=== PATIENT | male | born 1995 | race Caucasian/White ===

== ENCOUNTER 2019-02-02 23:10 | Emergency (ER) | payer MEDICAID ==
[2019-02-02 23:15] VITALS: BMI 39.6
[2019-02-02] MEDS ORDERED: CELEXA40 MG (23:17)
[2019-02-02] MEDS ORDERED: PROBIOTIC BLEN1 EACH (23:17)
[2019-02-02] MEDS ORDERED: ZITHROMAX TRI-500 MG PO (23:29)
[2019-02-02] MEDS ORDERED: ROBITUSSIN DM 110 ML PO (23:29)
[2019-02-03 00:17] VITALS: BP 138/73
== END 2019-02-03 00:18 | disposition home or self-care (01) ==
LOC: D.ER 23:10
DX: R06.9 Unspecified abnormalities of breathing (principal)

== ENCOUNTER 2019-06-23 14:43 | Emergency (ER) | payer MEDICAID ==
[~2019-06-23] VITALS: Ht 167.6 cm; Wt 106.8 kg
[~2019-06-23 14:43] MED LIST: CELEXA40 MG; PROBIOTIC BLEN1 EACH; ROBITUSSIN DM 110 ML PO; ZITHROMAX TRI-500 MG PO
[2019-06-23 14:49] VITALS: Ht 167.6 cm; Wt 106.8 kg
[2019-06-23 15:20] LABS: BASOPHILS 0.1 % (0-2); EOSINOPHILS 0.6 % (0-7); HEMATOCRIT 43.6 % (42.0-54.0); HEMOGLOBIN 14.5 g/dL (13.5-17.5); IMMATURE GRANULOCYTES 0.3 % (0-5); MCH 28.7 pg (26.0-34.0); MCHC 33.3 g/dL (31.0-37.0); MCV 86.2 fL (80.0-100.0); MEAN PLATELET VOLUME 10.2 fL (7.4-10.4); MONOCYTES 5.5 % (2-11); NEUTROPHILS 69.5 % (40-80); PLATELET COUNT 266 10x3/uL (130-400); RBC 5.06 10x6/uL (4.20-6.10); RDW 13.4 % (11.5-14.5); WBC 11.4 10x3/uL (4.8-10.8)
[2019-06-23 15:28] LABS: APTT 31.1 SECONDS (22.8-39.4); INR 1.08 (0.85-1.17); PROTIME 13.5 SECONDS (11.6-15.0)
[2019-06-23 15:36] LABS: ALBUMIN 3.4 g/dL (3.4-5.0); ALKALINE PHOSPHATASE 85 U/L (46-116); ALT (SGPT) 21 U/L (10-68); BILIRUBIN - TOTAL 0.45 mg/dL (0.2-1.3); CALC OSMOLALITY 280 mosm/kg (275-300); CALCIUM 8.2 mg/dL (8.5-10.1); CHLORIDE - SERUM 105 mmol/L (98-107); GLUCOSE 84 mg/dL (74-106); POTASSIUM - SERUM 3.5 mmol/L (3.5-5.1); PROTEIN - SERUM 6.9 g/dL (6.4-8.2); SODIUM 142 mmol/L (136-145); UREA NITROGEN 11 mg/dL (7-18); eGFR NON AFRICAN AMERICAN > 90 mL/min (90-120)
[2019-06-23 15:47] LABS: CKMB 0.2 U/L (0.0-3.6); CREATINE KINASE 88 UL (21-232); MAGNESIUM - SERUM 1.6 mg/dL (1.8-2.4)
[2019-06-23 15:53] LABS: TROPONIN-I < 0.017 ng/mL (0.000-0.060)
[2019-06-23 16:10] LABS: APPEARANCE CLEAR (CLEAR); BILIRUBIN NEGATIVE (NEGATIVE); COLOR YELLOW (YELLOW); GLUCOSE NEGATIVE (NEGATIVE); KETONE NEGATIVE (NEGATIVE); NITRITE NEGATIVE (NEGATIVE); PROTEIN NEGATIVE (NEGATIVE); UROBILINOGEN NORMAL (NORMAL)
[2019-06-23 16:11] LABS: BACTERIA FEW /hpf (NEGATIVE); MUCUS <1+ /lpf (NONE SEEN); RED CELLS - URINE 0-5 /hpf (0-5); WHITE CELLS - URINE 0-5 /hpf (NEGATIVE)
[2019-06-23 16:18] LABS: UDS - AMPHET NEGATIVE QUAL (NEGATIVE); UDS - BARB NEGATIVE QUAL (NEGATIVE); UDS - BENZO NEGATIVE QUAL (NEGATIVE); UDS - COCAINE NEGATIVE QUAL (NEGATIVE); UDS - OPIATE NEGATIVE QUAL (NEGATIVE); UDS - PCP NEGATIVE QUAL (NEGATIVE); UDS - THC NEGATIVE QUAL (NEGATIVE)
[2019-06-23 18:19] VITALS: BP 147/87
== END 2019-06-23 18:21 | disposition home or self-care (01) ==
LOC: D.ER 14:43
PROVIDERS: Family Medicine
DX: R55 Syncope and collapse (principal); R53.1 Weakness

== ENCOUNTER 2019-08-12 20:25 | Emergency (ER) | payer SELFPAY ==
[~2019-08-12] VITALS: Ht 167.6 cm; Wt 109.1 kg
[2019-08-12 20:39] VITALS: Ht 167.6 cm; Wt 109.1 kg
[2019-08-12 21:26] LABS: APPEARANCE CLEAR (CLEAR); COLOR YELLOW (YELLOW)
[2019-08-12 21:27] LABS: AMORPHOUS SEDIMENT <1+ /lpf (NONE SEEN); BACTERIA FEW /hpf (NEGATIVE); BILIRUBIN NEGATIVE (NEGATIVE); EPITHELIAL CELLS 0-5 /hpf (0-5); GLUCOSE NEGATIVE (NEGATIVE); KETONE NEGATIVE (NEGATIVE); NITRITE NEGATIVE (NEGATIVE); PROTEIN NEGATIVE (NEGATIVE); RED CELLS - URINE 0-5 /hpf (0-5); UROBILINOGEN NORMAL (NORMAL); WHITE CELLS - URINE 0-5 /hpf (NEGATIVE)
[2019-08-12 21:48] LABS: BASOPHILS 0.1 % (0-2); EOSINOPHILS 0.7 % (0-7); HEMATOCRIT 44.5 % (42.0-54.0); HEMOGLOBIN 15.2 g/dL (13.5-17.5); IMMATURE GRANULOCYTES 0.3 % (0-5); MCH 29.5 pg (26.0-34.0); MCHC 34.2 g/dL (31.0-37.0); MCV 86.4 fL (80.0-100.0); MEAN PLATELET VOLUME 10.3 fL (7.4-10.4); MONOCYTES 5.2 % (2-11); NEUTROPHILS 71.7 % (40-80); RBC 5.15 10x6/uL (4.20-6.10); RDW 12.8 % (11.5-14.5); WBC 15.1 10x3/uL (4.8-10.8)
[2019-08-12 21:57] LABS: PLATELET COUNT 334 10x3/uL (130-400)
[2019-08-12 22:00] LABS: CALC OSMOLALITY 278 mosm/kg (275-300); CALCIUM 8.2 mg/dL (8.5-10.1); CARBON DIOXIDE 31.2 mmol/L (21.0-32.0); CHLORIDE - SERUM 102 mmol/L (98-107); GLUCOSE 98 mg/dL (74-106); POTASSIUM - SERUM 3.8 mmol/L (3.5-5.1); SODIUM 140 mmol/L (136-145); UREA NITROGEN 13 mg/dL (7-18); eGFR NON AFRICAN AMERICAN > 90 mL/min (90-120)
[2019-08-12 22:06] LABS: ALBUMIN 3.5 g/dL (3.4-5.0); ALKALINE PHOSPHATASE 101 U/L (46-116); ALT (SGPT) 29 U/L (10-68); AMYLASE - SERUM 70 U/L (25-115); BILIRUBIN - TOTAL 0.27 mg/dL (0.2-1.3); LIPASE 190 U/L (73-393); PROTEIN - SERUM 7.3 g/dL (6.4-8.2)
[2019-08-12] MEDS ORDERED: ZOFRAN ODT4 MG/UDTAB PO (23:16)
[2019-08-12 23:58] VITALS: BP 119/63
== END 2019-08-12 23:58 | disposition home or self-care (01) ==
LOC: D.ER 20:25
PROVIDERS: Family Medicine
DX: R55 Syncope and collapse (principal); D72.829 Elevated white blood cell count, unspecified; R11.2 Nausea with vomiting, unspecified; R51 Headache